=== PATIENT | male | born 1975 | race Caucasian/White ===

== ENCOUNTER 2024-06-02 21:26 | Emergency (ER) | payer SELFPAY ==
[~2024-06-02] VITALS: Ht 172.7 cm; Wt 138.0 kg
[2024-06-02 21:51] VITALS: O2SAT 97
[2024-06-03] MEDS: KETOROLAC 15MG/ML VIAL IM NR (00:11)
[2024-06-03 01:42] VITALS: BP 110/72; PULSE 78; RESP 20; TEMP 36.94740; O2SAT 99
== END 2024-06-03 01:45 | disposition home or self-care (01) ==
LOC: ER 21:26
DX: M25.561 Pain in right knee (principal); J45.909 Unspecified asthma, uncomplicated
CPT/HCPCS: 99283; 73560; 96372; J1885